=== PATIENT | female | born 1950 | race Caucasian/White ===

== ENCOUNTER 2023-05-03 15:41 | Inpatient (IN) | payer MEDICARE, OTHER ==
[2023-05-03] VITALS (331 sets, daily range): BP systolic 88–97; BP diastolic 42–49; PULSE 84–93; TEMP 97.8–98; O2SAT 65–100
[~2023-05-03] VITALS: Ht 157.5 cm; Wt 51.8 kg
[~2023-05-03 15:41] MED LIST: ASPIRIN 81M81 MG/TA2 PO; BENICAR 20MG TA20 MG PO; EFFEXOR-XR150 MG PO; OMNICEF 300MG300 MG PO; PREMARIN .3MG0.3 MG PO; PROAIR HFA0.09 MG/AC INH; VITAMIN D31000 I1 PO; ZOFRAN ODT8 MG PO
--- NOTE | 2023-05-03 17:30 | NUR ---
PATIENT ALERT AND ORIENTED X3. PATIENT ARRIVED VIA EMS. PER EMS REPORT PATIENT SLEPT THE ENTIRE TRIP HERE AND OXYGEN SATURATION WAS AT 94-95% ON 3L O2/NC BUT WHEN VITALS TAKEN UPON ARRIVAL PATIENT WAS HYPOTENSIVE AND OXYGEN SATURATION WAS HIGH 80'S AND WHEN OXYGEN WAS INCREASED OXYGEN SATURATION DID NOT IMPROVED. PATIENT WAS SLOWLY LESS TALKITATIVE AND HAVING POOR CONENTRATION WHEN TRYING TO ANSWER QUESTIONS THAT DOCTOR WAS ASKING. PATIENT SEEMED VERY THIN, SHE EXPRESSED NOT EATING WELL DO TO POOR APPETITE AND HAVING EPISODES OF DIARRHEA. PATIENT SKIN WAS DRY AND BLE EXTREMELY DRY. PATIENT DENIED SOA BUT OXYGEN SATURATION WAS STILL UNDER 90'S. PATIENT WAS TRASPORTED TO ICU.
--- NOTE | 2023-05-03 17:35 | NUR ---
Arrived to the icu from the medical floor. Patient alert and oriented upon arrival. Denies any pain and states that her breathing feels "better" than when she first arrived. Only complaint is feeling hungry and is asking if she can have some soup. O2 88% on 6L after self transfering to the icu bed. O2 increased to 8L and is currenlty 92%. Call light left within reach; will continue to monitor.
[2023-05-03 18:02] LABS: MEAN CELL VOLUME 74 fl (80.0-100.0); MEAN CORPUSCULAR HEMOGLOBIN 23 pg (27-31); MEAN CORPUSCULAR HGB CONC 31 g/dl (33.0-37.0); MEAN PLATELET VOLUME 8.5 fl (7.4-10.4); PLATELET COUNT 596 K/mm3 (130-400); RED BLOOD COUNT 4.35 M/mm3 (4.10-5.30); REDCELL DISTRIBUTION WIDTH-CV 21.9 % (11.5-14.5)
[2023-05-03 18:05] LABS: HEMATOCRIT 32.1 % (37.0-47.0)
[2023-05-03 18:19] LABS: ALBUMIN 2.5 gm/dL (3.4-4.8); BILIRUBIN,TOTAL 0.7 mg/dL (0.2-1.2); CALCIUM 8.7 mg/dL (8.4-10.2); CREATININE, serum 0.66 mg/dL (0.57-1.11); MAGNESIUM 1.6 mg/dL (1.6-2.6); POTASSIUM 3.4 mmol/L (3.5-4.5)
[2023-05-03] MEDS ORDERED: NATURAL E400 IU (18:19)
[2023-05-03 18:20] LABS: BAND 5 % (0-10); NEUTROPHILS 91 % (42.0-75.2); PLATELET ESTIMATE INCREASED (NORMAL)
[2023-05-03 18:22] LABS: HYPOCHROMIA 2+; TARGET CELLS 1+
[2023-05-03 18:23] LABS: ANISOCYTOSIS 2+
[2023-05-03 18:26] LABS: SCHISTOCYTES 1+
--- NOTE | 2023-05-03 19:01 | NUR ---
CONTACTED BY ICU NURSE THAT PATIENT SAID SHE HAD A PURSE WITH HER WHEN ADMITTED AT [facility]. WHEN PATIENT ARRIVED BY EMS TO MEDICAL SHE DID NOT HAVE A PURSE WITH HER. CALLED [facility] EMERGENCY DEPARTMENT NURSE TO ASK ABOUT THE PURSE WHERE THE NURSE THAT HELPED WHEN PATIENT WAS GETTING READY FOR TRANSPORT SAID THAT THE PATIEN'S FAMILY TOOK THE PATIENT'S PURSE HOME. NOTIFIED THE ICU NURSE.
--- NOTE | 2023-05-03 19:15 | NUR ---
Received report from ANA Hernandez.
[2023-05-04] VITALS (1034 sets, daily range): BP systolic 102–115; BP diastolic 42–58; PULSE 77–92; TEMP 97.8–98.4; O2SAT 63–100
[2023-05-04 06:14] LABS: MEAN CELL VOLUME 73 fl (80.0-100.0); MEAN CORPUSCULAR HGB CONC 31 g/dl (33.0-37.0); MEAN PLATELET VOLUME 8.6 fl (7.4-10.4); PLATELET COUNT 600 K/mm3 (130-400); RED BLOOD COUNT 4.23 M/mm3 (4.10-5.30); REDCELL DISTRIBUTION WIDTH-CV 22.1 % (11.5-14.5)
[2023-05-04 06:18] LABS: HEMATOCRIT 30.9 % (37.0-47.0); HEMOGLOBIN 9.6 g/dl (12.5-16.0); MEAN CORPUSCULAR HEMOGLOBIN 23 pg (27-31)
[2023-05-04 06:26] LABS: CREATININE, serum 0.6 mg/dL (0.57-1.11); POTASSIUM 3.9 mmol/L (3.5-4.5)
[2023-05-04 06:49] LABS: ANISOCYTOSIS 3+; BAND 10 % (0-10); BURR CELLS 1+; HYPOCHROMIA 1+; LYMPHOCYTE 1 % (20.0-51.0); NEUTROPHILS 88 % (42.0-75.2); OVALOCYTES 1+; PLATELET ESTIMATE INCREASED (NORMAL)
--- NOTE | 2023-05-04 07:45 | NUR ---
RECEIVED REPORT FROM NIGHTSHIFT RNKATHY. PATIENT LAYING IN BED RESTING WITH EYES CLOSED. BED IN A LOW POSITION. CALL LIGHT WITHIN REACH. LABS, MEDICATIONS, AND ORDERS ALL REVIEWED AND ACKNOWLEDGED.
[2023-05-04] MEDS ORDERED: TRELEGY ELLIPT1 EAC1 IH (08:55)
[2023-05-04] MEDS ORDERED: SINGULAIR 110 MG/TAB PO (08:58)
--- NOTE | 2023-05-04 09:43 | NUR ---
HEAD TO TOE ASSESSMENT COMPLETED. PATIENT ALERT AND ORIENTED. NO COMPLAINTS OF PAIN. PATIENT REPORTS SHE IS FEELING BETTER THAN SHE DID YESTERDAY. PUPILS EQUAL AND REACTIVE. HEART SOUNDS REGULAR WITH S1 AND S2 NOTED. LUNG SOUNDS DIMINISHED BILATERALLY ALL OVER WITH WHEEZING IN LEFT UPPER LOBE. BOWEL SOUNDS ACTIVE X4. PATIENT IS VOIDING IN TOILET. PULSES PRESENT AND EQUAL BILATERALLY IN UPPER AND LOWER EXTREMITIES. MEDS ADMINISTERED PER ADMINISTRATION. BED IN A LOW POSITION. CALL LIGHT IN REACH.
[2023-05-04] MEDS ORDERED: ESTRACE0.5 MG PO (12:37)
[2023-05-04] MEDS ORDERED: PROTONIX 40MG T40 MG PO (12:38)
[2023-05-04] MEDS ORDERED: DALIRESP500 MCG PO (12:39)
[2023-05-04] MEDS ORDERED: PLAQUENIL 200M200 MG PO (12:39)
--- NOTE | 2023-05-04 15:01 | NUR ---
maintenance worker municipal met with patient, son Roe #[phone] and daughter in law [place] to discuss discharge planning. Patient lives at home and is on 3 liters of oxygen at base line. Hannah provides copy of patient's [employer] plan insurance. Worker provided R1 and case mangement team with this updated insurance information. Patient and family state that they want to initiate home health. Worker provided home health information and provided the Medicare.gov share option list. Family will review list and chose their home health preference. Family states that patient's primary care is Dr Vero Pan in [place]. Discharge plan: home with health health. Will await therapy recommendations for disposition.
--- NOTE | 2023-05-04 19:23 | NUR ---
REPORT GIVEN TO MEDICAL RN, DIMITRI IN PERSON. DIMITRI WILL CALL DOWN TO UNIT WHEN READY FOR PATIENT TO BE TRANSFERRED UP TO FLOOR.
[2023-05-05 01:05] LABS: CLOSTRIDIUM DIFF A/B NEG
[2023-05-05 04:06] VITALS: BP 128/62; PULSE 84; TEMP 98
[2023-05-05 07:04] LABS: MEAN CELL VOLUME 76 fl (80.0-100.0); MEAN CORPUSCULAR HGB CONC 30 g/dl (33.0-37.0); MEAN PLATELET VOLUME 8.8 fl (7.4-10.4); PLATELET COUNT 632 K/mm3 (130-400); RED BLOOD COUNT 3.59 M/mm3 (4.10-5.30); REDCELL DISTRIBUTION WIDTH-CV 22.3 % (11.5-14.5)
[2023-05-05 07:07] LABS: CREATININE, serum 0.56 mg/dL (0.57-1.11)
[2023-05-05 07:18] LABS: HEMATOCRIT 27.4 % (37.0-47.0); HEMOGLOBIN 8.3 g/dl (12.5-16.0); MEAN CORPUSCULAR HEMOGLOBIN 23 pg (27-31)
[2023-05-05 07:41] VITALS: BP 123/59; PULSE 76; TEMP 97.6
[2023-05-05 07:46] LABS: ANISOCYTOSIS 2+; HYPOCHROMIA 3+; LYMPHOCYTE 2 % (20.0-51.0); MICROCYTOSIS 1+
[2023-05-05 07:47] LABS: OVALOCYTES 1+
[2023-05-05 07:49] LABS: PLATELET ESTIMATE INCREASED (NORMAL)
[2023-05-05 07:50] LABS: BAND 6 % (0-10); NEUTROPHILS 90 % (42.0-75.2)
--- NOTE | 2023-05-05 10:09 | NUR ---
SHIFT ASSESSMENT COMPLETE. VSS. PATIENT ON O2 @ 3L NC 90%. PATIENT SLEEPING IN BED. ALL MORNING MEDS GIVEN PER ORDERS. PATIENT HAS NO REQUEST AT [facility] THIS TIME. FALL PRECAUTIONS IN PLACE AND CALL LIGHT IN REACH.
[2023-05-05 11:22] VITALS: BP 125/54; PULSE 75; TEMP 98
--- NOTE | 2023-05-05 13:20 | NUR ---
dairy farm worker met with patient to get her choice for home health agency. Patient reports her daughter in law, Suze, had left a list for the social work therapist. SW contacted patient's son, Dae, as patient did not know her daughter in law's number. Dae provided Suze's number, . SW contacted the ICU to check if the list had been left with the nurse there. The ICU assistant community manager did not have the list. SW contacted Suze whom expressed their first choice is [facility], second is [facility] and third is [facility]. SW faxed home health referral to [facility]. Discharge plan: Home with Home Health
[2023-05-05 15:12] VITALS: BP 144/73; PULSE 96; TEMP 97.4
[2023-05-05 20:10] VITALS: BP 136/63; PULSE 93; TEMP 98.1
[2023-05-05 23:47] VITALS: BP 149/81; PULSE 87; TEMP 97.6
[2023-05-06 03:33] VITALS: BP 130/69; PULSE 88; TEMP 97.5
--- NOTE | 2023-05-06 05:07 | NUR ---
Quiet night- no requests, VSS, continues on 3L/nc w/humidity
[2023-05-06 07:03] LABS: MEAN CELL VOLUME 75 fl (80.0-100.0); MEAN CORPUSCULAR HGB CONC 31 g/dl (33.0-37.0); MEAN PLATELET VOLUME 8.5 fl (7.4-10.4); PLATELET COUNT 666 K/mm3 (130-400); REDCELL DISTRIBUTION WIDTH-CV 22.5 % (11.5-14.5)
[2023-05-06 07:08] LABS: HEMATOCRIT 28.4 % (37.0-47.0); HEMOGLOBIN 8.9 g/dl (12.5-16.0); MEAN CORPUSCULAR HEMOGLOBIN 23 pg (27-31)
[2023-05-06 07:17] LABS: CALCIUM 8.3 mg/dL (8.4-10.2); CREATININE, serum 0.55 mg/dL (0.57-1.11); POTASSIUM 3.8 mmol/L (3.5-4.5)
[2023-05-06 07:23] LABS: BAND 6 % (0-10); NEUTROPHILS 86 % (42.0-75.2)
[2023-05-06 07:24] LABS: PLATELET ESTIMATE INCREASED (NORMAL)
[2023-05-06 07:25] LABS: ANISOCYTOSIS 2+; HYPOCHROMIA 2+; MICROCYTOSIS 1+
[2023-05-06 07:26] LABS: LYMPHOCYTE 4 % (20.0-51.0); OVALOCYTES 1+
[2023-05-06 07:34] VITALS: BP 139/71; PULSE 91; TEMP 98.1
[2023-05-06] MEDS ORDERED: MEDROL 4MG DOSPA4 MG PO (08:55)
[2023-05-06] MEDS ORDERED: AMOXICILLIN 8751 TAB PO (08:55)
--- NOTE | 2023-05-06 11:14 | NUR ---
SHIFT ASSESSMENT COMPLETE. VSS. PATIENT RESTING IN BED, RR 18. ALL MORNING MEDS GIVEN PER ORDERS. PATIENT INDEPENDENT IN ROOM. PATIENT HAS NO REQUEST OR COMPLINTS. CALL LIGHT IN REACH
[2023-05-06 11:28] VITALS: BP 125/58; PULSE 95; TEMP 97.6
--- NOTE | 2023-05-06 12:53 | NUR ---
family service caseworker was notified patient is medically stable for discharge. family service caseworker met with patient and updated her that [facility] is able to accept her for home health. SW received the important message from medicare with patient regarding her rights. Patient understood and had no questions or concerns. Patient signed the form. SW made a copy, placed original in the chart and provided a copy to the patient. SW notified patient's family that she was accepted by [facility]. DANA received an updated address for patient and added her daughter in law's phone number for [facility]. DANA faxed clinical updates and discharge orders to [facility]. Discharge Plan: Home with Home Health
[2023-05-06 15:20] VITALS: BP 151/75; PULSE 92; TEMP 97.9
--- NOTE | 2023-05-06 16:31 | NUR ---
aged or disabled care worker was notified patient will not be discharging today as she needs a Lexiscan. SW notified [facility] that patient will not discharge tomorrow, possibly tomorrow. SW will continue to follow patient's discharge care needs. Discharge Plan: Home with [facility]
[2023-05-06 19:45] VITALS: BP 130/66; PULSE 86; TEMP 98.3
--- NOTE | 2023-05-06 20:30 | NUR ---
Initial shift assessment done- in good spirits, hopes to go home tomorrow, NPO after MN for lexiscan tomorrow,, continues to get the Zosyn IV and po Doxycycline for pneumonia, feeling much better, on 3L/nc, this is her baseline.
[2023-05-06 23:16] VITALS: BP 118/63; PULSE 75; TEMP 97.4
[2023-05-07] VITALS (8 sets, daily range): BP systolic 121–131; BP diastolic 67–78; PULSE 66–93; TEMP 97.7–98.3
--- NOTE | 2023-05-07 05:17 | NUR ---
Quiet night, VSS, has been NPO since NH for lexiscan
[2023-05-07 07:41] LABS: BASO % 0.2 % (0.0-2.0); GRAN # 11.3 K/mm3 (1.4-6.5); GRAN % 84.2 % (42.2-75.2); LYMPH # 1.1 K/mm3 (1.2-3.4); LYMPH % 8.2 % (20.0-51.0); MEAN CELL VOLUME 74 fl (80.0-100.0); MEAN CORPUSCULAR HGB CONC 31 g/dl (33.0-37.0); MEAN PLATELET VOLUME 8.4 fl (7.4-10.4); MONO # 0.8 K/mm3 (0.1-0.6); MONO % 6.3 % (1.7-9.3); PLATELET COUNT 685 K/mm3 (130-400); REDCELL DISTRIBUTION WIDTH-CV 22.8 % (11.5-14.5)
[2023-05-07 07:42] LABS: HEMATOCRIT 29.7 % (37.0-47.0); HEMOGLOBIN 9.3 g/dl (12.5-16.0); MEAN CORPUSCULAR HEMOGLOBIN 23 pg (27-31)
[2023-05-07 08:16] LABS: POTASSIUM 4.3 mmol/L (3.5-4.5)
[2023-05-07 08:33] LABS: ALBUMIN 2.3 gm/dL (3.4-4.8); BILIRUBIN,TOTAL 0.3 mg/dL (0.2-1.2); CALCIUM 8.5 mg/dL (8.4-10.2); CREATININE, serum 0.58 mg/dL (0.57-1.11); TOTAL PROTEIN 5.3 gm/dL (6.2-8.1)
--- NOTE | 2023-05-07 09:52 | NUR ---
PT TAKEN DOWN TO STRESS TEST
--- NOTE | 2023-05-07 10:32 | NUR ---
PT BACK FROM [facility] RESTING IN THE BED.
--- NOTE | 2023-05-07 14:19 | NUR ---
ALL DISCHARGE INSTRUCTIONS REVIEWED WITH PT, ALL QUESTIONS AND CONCERNS ANSWERED. IV SITE TO LEFT FOREARM DISCONTINUED, CATHETER TIP INTACT. PT ESCORTED OUT BY PCT, ALL PERSONAL BELONGINGS TAKEN WITH THEM.
--- NOTE | 2023-05-07 18:13 | NUR ---
farmworker pullet farm was notified patient is medically stable for discharge. SW emailed clinical updates and discharge orders to [facility]. [facility]charge[facility]
== END 2023-05-07 13:30 | disposition home health service (06) | DRG 871 ==
LOC: MEDICAL 15:41 → ICU 17:23 → MEDICAL 05-04 20:45 → ICU 05-04 20:45 → MEDICAL 05-04 20:45
PROVIDERS: Internal Medicine; ADMIT Internal Medicine
DX: A41.9 Sepsis, unspecified organism (principal); J18.9 Pneumonia, unspecified organism; J96.21 Acute and chronic respiratory failure with hypoxia; E87.1 Hypo-osmolality and hyponatremia; I42.9 Cardiomyopathy, unspecified; I50.22 Chronic systolic (congestive) heart failure; Z66 Do not resuscitate; J43.9 Emphysema, unspecified; F41.9 Anxiety disorder, unspecified; E78.5 Hyperlipidemia, unspecified; M35.00 Sjogren syndrome, unspecified; R65.20 Severe sepsis without septic shock; F17.210 Nicotine dependence, cigarettes, uncomplicated; E87.6 Hypokalemia; E83.42 Hypomagnesemia; I11.0 Hypertensive heart disease with heart failure; I08.3 Combined rheumatic disorders of mitral, aortic and tricuspid valves; R59.1 Generalized enlarged lymph nodes; I95.9 Hypotension, unspecified; Z88.5 Allergy status to narcotic agent; Z90.710 Acquired absence of both cervix and uterus; Z79.82 Long term (current) use of aspirin; Z79.899 Other long term (current) drug therapy; Z88.8 Allergy status to other drugs, medicaments and biological substances
CPT/HCPCS: A9500-JZ; J1100; J1650; J2543; J2785; J2920; J3475; J7030; J7050; Q9967